=== PATIENT | female | born 1995 | race Caucasian/White ===

== ENCOUNTER 2018-02-13 02:55 | Emergency (ER) | payer SELFPAY ==
[~2018-02-13] VITALS: Ht 157.5 cm; Wt 45.8 kg
[2018-02-13] MEDS ORDERED: SODIUM CHLORIDE 0.9% 1000ML 1,000 ML IV STA (03:36)
[2018-02-13 03:51] LABS: BASOPHILS % 0.8 % (0.0-1.0); EOSINOPHILS # (AUTO) 0.1 (0.0-0.4); EOSINOPHILS % 1.9 % (0.0-6.0); HEMATOCRIT 34.7 % (34.2-44.1); HEMOGLOBIN 11.1 g/dL (12.0-16.0); LYMPHOCYTES # (AUTO) 1.5 (1.0-3.2); MEAN CORPUSCULAR HEMOGLOBIN 26.5 pg (28-32); MEAN CORPUSCULAR VOLUME 82.8 fL (81-99); MONOCYTES # (AUTO) 0.5 (0.2-0.8); MONOCYTES % 10.1 % (4.4-11.3); NEUTROPHILS # (AUTO) 2.9 (2.1-6.9); PLATELET COUNT 219 x10e3/uL (140-360); RED BLOOD COUNT 4.19 x10e6/uL (3.6-5.1)
[2018-02-13 03:55] LABS: INR 1.04; PROTHROMBIN TIME 12.8 seconds (11.9-14.5)
[2018-02-13 03:56] LABS: PARTIAL THROMBOPLASTIN TIME 30.5 seconds (23.8-35.5)
[2018-02-13 04:03] LABS: ACETAMINOPHEN 4 ug/mL (10-30)
[2018-02-13 04:04] LABS: ALANINE AMINOTRANSFERASE 9 IU/L (0-55); ALBUMIN 4.1 g/dL (3.5-5.0); ALBUMIN/GLOBULIN RATIO 1.5 (0.8-2.0); ALKALINE PHOSPHATASE 51 IU/L (40-150); ANION GAP 11.6 mmol/L (8-16); BLOOD UREA NITROGEN 15 mg/dL (7-26); BUN/CREATININE RATIO 17 (6-25); CALCIUM 9.4 mg/dL (8.4-10.2); CARBON DIOXIDE 23 mmol/L (22-29); CHLORIDE 107 mmol/L (98-107); CREATINE KINASE 49 IU/L (29-168); CREATININE, SERUM 0.89 mg/dL (0.57-1.11); EST GLOMERULAR FILTRATION RATE > 60 ML/MIN (60-); GLUCOSE 97 mg/dL (74-118); LIPASE 39 U/L (8-78); MAGNESIUM 1.9 MG/DL (1.3-2.1); POTASSIUM 3.6 mmol/L (3.5-5.1); SODIUM 138 mmol/L (136-145)
[2018-02-13 04:23] LABS: THYROID STIMULATING HORMONE 2.869 uIU/mL (0.350-4.940)
[2018-02-13 04:34] LABS: CLARITY,URINE CLEAR (CLEAR); COLOR,URINE YELLOW (YELLOW); LEUKOCYTE ESTERASE ,URINE NEGATIVE (NEGATIVE); NITRITE,URINE NEGATIVE (NEGATIVE)
[2018-02-13 04:35] LABS: AMPHETAMINES SCREEN,URINE NEGATIVE (NEGATIVE); BENZODIAZEPINES SCREEN,URINE NEGATIVE (NEGATIVE); BILIRUBIN,URINE NEGATIVE (NEGATIVE); KETONES,URINE NEGATIVE (NEGATIVE); PHENCYCLIDINE SCREEN,URINE NEGATIVE (NEGATIVE); PREGNANCY TEST, URINE NEGATIVE (NEGATIVE); PROTEIN,URINE DIPSTICK NEGATIVE (NEGATIVE); URINE UROBILINOGEN 0.2 mg/dL (0.2 - 1)
[2018-02-13 04:37] LABS: FREE THYROXINE INDEX 2.4352 (1.4-3.8); THYROID STIMULATING HORMONE 3.004 uIU/mL (0.350-4.940)
[2018-02-13 04:44] LABS: BACTERIA,URINE RARE /HPF; EPITHELIAL CELLS,URINE RARE /LPF; WBC,URINE (MAN) 0-5 /HPF (0-5)
--- NOTE | 2018-02-13 05:03 | Diagnostic Imaging Report ---
EXAMINATION: Head CT without contrast. HISTORY:Altered mental status. Comparison: None. TECHNIQUE: Multidetector axial images were obtained from the foramen magnum to the vertex without contrast. The images were reconstructed using brain and bone algorithms. Thin section brain images were reformatted into coronal and sagittal planes. Intravenous contrast: None IMAGE QUALITY: Acceptable. FINDINGS: Skull/scalp: No lytic or blastic. lesions. No surgical changes. Parenchyma: No abnormal density. No acute hemorrhage, mass or acute major vascular territorial infarct. Arteries: No density suggestive of thrombosis. Dural sinuses: No abnormal density suggestive of thrombosis. Ventricles: No hydrocephalus or displacement. Extra-axial spaces: No abnormal density. Brain volume: Normal for age. Craniocervical junction: No mass, Chiari malformation, or basilar invagination. Sella: No mass. Paranasal/mastoid sinuses: Imaged portions unremarkable. IMPRESSION: No intracranial abnormality. Signed by: Dr. Fariba Samaniego M.D. on 02/13/2018 4:59 AM
--- NOTE | 2018-02-13 05:20 | Diagnostic Imaging Report ---
CHEST SINGLE (PORTABLE), 02/13/2018 3:36 AM Technique: CHEST SINGLE (PORTABLE) Comparison: None available. Clinical history: Weakness Findings: Unremarkable appearance of the heart, mediastinum, lungs and pleural spaces. Impression: 1. Lines/Tubes: None 2. No acute abnormality. Signed by: Dr Lona Noguera MD on 02/13/2018 5:16 AM
[2018-02-13 06:16] VITALS: BP 106/65
== END 2018-02-13 06:57 | disposition home or self-care (01) ==
LOC: ER 02:55
DX: R11.0 Nausea (principal); E86.0 Dehydration
CPT/HCPCS: 36415; 70450; 71045; 80053; 80307; 80320; 80329; 81001; 81025; 82550; 82553; 83690; 83735; 84436; 84443; 84479; 84484; 85025; 85610; 85730; 99284; J7030